=== PATIENT | female | born 1970 ===

== ENCOUNTER 2020-10-24 17:16 | Emergency (ER) | payer OTHER ==
[2020-10-24] MEDS ORDERED: Lidocaine 1% PF 5 ML VIAL ONE (17:47)
[2020-10-24] MEDS ORDERED: cefTRIAXone\\ROCEPHIN 2 GM VIAL ONE (17:47)
== END 2020-10-24 18:45 | disposition home or self-care (01) ==
LOC: ERS 17:16
DX: L08.9 Local infection of the skin and subcutaneous tissue, unspecified (principal); E11.40 Type 2 diabetes mellitus with diabetic neuropathy, unspecified; M19.90 Unspecified osteoarthritis, unspecified site; Z79.84 Long term (current) use of oral hypoglycemic drugs; Z79.82 Long term (current) use of aspirin; Z79.899 Other long term (current) drug therapy
CPT/HCPCS: 96372; 99283; J0696